=== PATIENT | female | born 1990 | race Two or more races ===

== ENCOUNTER 2022-11-28 13:37 | Emergency (ER) | payer OTHER ==
[~2022-11-28] VITALS: Ht 162.6 cm; Wt 68.9 kg
== END 2022-11-28 19:32 | disposition home or self-care (01) ==
LOC: ER 13:37
DX: O20.9 Hemorrhage in early pregnancy, unspecified (principal); Z3A.01 Less than 8 weeks gestation of pregnancy; K52.89 Other specified noninfective gastroenteritis and colitis; Z20.822 Contact with and (suspected) exposure to COVID-19

== ENCOUNTER 2022-12-03 15:39 | Inpatient (IN) | payer OTHER ==
[~2022-12-03] VITALS: Ht 162.6 cm; Wt 68.9 kg
== END 2022-12-04 10:05 | disposition home or self-care (01) | DRG 806 ==
LOC: ER 15:39 → O/R 22:56
PROVIDERS: ADMIT Obstetrics & Gynecology; ATTEND Obstetrics & Gynecology
PROC: 10D07Z8 Extraction of Products of Conception, Other, Via Natural or Artificial Opening (ICD-10-PCS; principal; 2022-12-03 22:00)
DX: O02.0 Blighted ovum and nonhydatidiform mole (principal); O08.1 Delayed or excessive hemorrhage following ectopic and molar pregnancy; Z37.1 Single stillbirth; Z20.822 Contact with and (suspected) exposure to COVID-19

== ENCOUNTER 2023-06-09 14:04 | Emergency (ER) | payer OTHER ==
[~2023-06-09] VITALS: Ht 160 cm; Wt 67.6 kg
[2023-06-09] MEDS ORDERED: PRENATA CHEWAB1 EACH PO (14:16)
[2023-06-09] MEDS ORDERED: FAMOTIDINE/PF 20 MG/2 ML VIAL IV ONE (16:00)
[2023-06-09 16:10] LABS: HEMATOCRIT 34.8 % (36.0-45.00); HEMOGLOBIN 12.2 g/dL (12.0-15.00); MEAN CELL VOLUME 92.6 fL (80.00-100.00); MEAN CORPUSCULAR HEMOGLOBIN 32.4 pg (27.00-32.0); PLATELET COUNT 333 K/uL (150-450); RED BLOOD COUNT 3.75 M/uL (4.00-6.00); RED CELL DISTRIBUTION WIDTH 14.1 % (11.5-14.5)
[2023-06-09 16:24] LABS: PH,URINE 6.5 (5.0-8.0); URINE APPEARANCE Clear; URINE BILIRRUBIN Negative (NEGATIVE); URINE BLOOD Negative; URINE COLOR Yellow; URINE GLUCOSE Negative (NEGATIVE); URINE LEUKOCYTE Small; URINE NITRATE Negative; URINE PROTEIN Negative (NEGATIVE); URINE UROBILINOGEN 0.2 E.U./dl
[2023-06-09 16:27] LABS: URINE EPITHELIAL CELLS 19.7 uL (0.0-38.8); URINE RBC 2.7 uL (0.0-20.8); URINE WBC 50.8 uL (0.0-23.2)
[2023-06-09 16:47] LABS: CREATININE SERUM 0.48 mg/dL (0.55-1.02); GFR 148.94; POTASSIUM 3.94 mEq/L (3.5-5.1)
[2023-06-09] MEDS ORDERED: PEPCID AC20 MG PO ×2 (18:52)
[2023-06-09] MEDS ORDERED: MACROBID 100 M100 MG PO (18:55)
== END 2023-06-09 19:05 | disposition home or self-care (01) ==
LOC: ER 14:04
PROVIDERS: Nurse Practitioner Family
DX: O34.81 Maternal care for other abnormalities of pelvic organs, first trimester (principal); N83.292 Other ovarian cyst, left side; Z3A.11 11 weeks gestation of pregnancy; R10.2 Pelvic and perineal pain; Z20.822 Contact with and (suspected) exposure to COVID-19

== ENCOUNTER 2023-06-26 11:07 | Outpatient (CLI) | payer OTHER ==
[~2023-06-26 11:07] MED LIST: MACROBID 100 M100 MG PO; PEPCID AC20 MG PO; PRENATA CHEWAB1 EACH PO
== END 2023-06-26 11:08 | disposition home or self-care (01) ==
LOC: PRENATAL 11:07
PROVIDERS: ATTEND Obstetrics & Gynecology Maternal & Fetal Medicine
DX: O35.9XX0 Maternal care for (suspected) fetal abnormality and damage, unspecified, not applicable or unspecified (principal); O35.3XX0 Maternal care for (suspected) damage to fetus from viral disease in mother, not applicable or unspecified; O44.00 Complete placenta previa NOS or without hemorrhage, unspecified trimester; Z3A.14 14 weeks gestation of pregnancy

== ENCOUNTER 2023-12-14 05:35 | Inpatient (IN) | payer OTHER ==
[~2023-12-14] VITALS: Ht 162.6 cm; Wt 79.4 kg
[2023-12-14 09:04] LABS: HEMATOCRIT 33.3 % (36.0-45.00); HEMOGLOBIN 11.2 g/dL (12.0-15.00); MEAN CELL VOLUME 87.7 fL (80.00-100.00); MEAN CORPUSCULAR HEMOGLOBIN 29.5 pg (27.00-32.0); MEAN CORPUSCULAR HGB CONC 33.7 g/dl (32.0-36.0); PLATELET COUNT 306 K/uL (150-450); RED BLOOD COUNT 3.79 M/uL (4.00-6.00); RED CELL DISTRIBUTION WIDTH 15.2 % (11.5-14.5)
[2023-12-14 09:11] LABS: PH,URINE 6.5 (5.0-8.0); URINE APPEARANCE Clear; URINE BILIRRUBIN Negative (NEGATIVE); URINE BLOOD Negative; URINE COLOR Yellow; URINE GLUCOSE Negative (NEGATIVE); URINE KETONE Negative (NEGATIVE); URINE LEUKOCYTE Negative; URINE NITRATE Negative; URINE PROTEIN Negative (NEGATIVE); URINE UROBILINOGEN 0.2 E.U./dl
[2023-12-14 09:13] LABS: URINE BACTERIA 224.2 uL (0.0-1933); URINE EPITHELIAL CELLS 26.7 uL (0.0-38.8); URINE RBC 2.1 uL (0.0-20.8); URINE WBC 10.6 uL (0.0-23.2)
[2023-12-14] MEDS ORDERED: MISOPROSTOL 25 MCG/4 ML GEL.W.APPL ONE (09:17)
[2023-12-14] MEDS ORDERED: MISOPROSTOL 25 MCG/4 ML GEL.W.APPL VAG STA (09:28)
[2023-12-14 09:41] LABS: INR < 0.93; PARTIAL THROMBOPLASTIN TIME 26.1 SECONDS (22.0-34.0); PROTHROMBIN TIME 9.8 SECONDS (9.0-11.5)
[2023-12-14 10:06] LABS: ALBUMIN 3.1 gm/dL (3.4-5.0); BILIRUBIN TOTAL 0.36 mg/dL (0.3-1.2); CREATININE SERUM 0.54 mg/dL (0.55-1.02); GFR 130.02; GLOBULINA 3.5 G/DL (2.4-3.5); POTASSIUM 3.92 mEq/L (3.5-5.1); TOTAL PROTEIN 6.6 gm/dL (6.4-8.2)
[2023-12-14 10:36] LABS: URINE CAST 0.15 uL (0.0-1.40)
[2023-12-14] MEDS ORDERED: OXYTOCIN 20 UNITS/500ML RL PIGGYBAG IV ONE (13:43)
[2023-12-14] MEDS ORDERED: OXYTOCIN 500 ML IV SCH (14:15)
[2023-12-14] MEDS ORDERED: MORPHINE SULFATE 4 MG/ML VIAL IV STA (16:02)
[2023-12-14] MEDS ORDERED: ERYTHROMYCIN BASE 1 GM TUBE OP ONE (16:36)
[2023-12-14] MEDS ORDERED: CHLORHEXIDINE GLUCONATE 120 ML BOTTLE TOP ONE (16:37)
[2023-12-14] MEDS ORDERED: OXYTOCIN 20 UNITS/1000ML RL PIGGYBAG IV ONE (16:37)
[2023-12-14] MEDS ORDERED: LIDOCAINE HCL 1% 10ML VIAL ONE (16:37)
[2023-12-14] MEDS ORDERED: OXYTOCIN 10 UNITS/ML VIAL ONE (16:37)
[2023-12-14] MEDS ORDERED: PROMETHAZINE HCL 25 MG/ML AMPUL ONE (16:44)
[2023-12-14] MEDS ORDERED: PROMETHAZINE HCL 25 MG/ML AMPUL IV STA (16:53)
[2023-12-14] MEDS ORDERED: PROMETHAZINE HCL 25 MG/ML AMPUL IM STA (16:53)
[2023-12-14] MEDS ORDERED: IBUprofen 400 MG TABLET PO PRN (18:00)
[2023-12-14] MEDS ORDERED: ERYTHROMYCIN BASE 1 GM TUBE OP SCH (19:15)
[2023-12-14] MEDS ORDERED: CHLORHEXIDINE GLUCONATE 120 ML BOTTLE TP SCH (19:15)
[2023-12-14] MEDS ORDERED: OXYTOCIN 10 UNITS/ML VIAL IM STA (19:15)
[2023-12-14] MEDS ORDERED: OXYTOCIN 1,000 ML IV SCH (19:15)
[2023-12-14 23:18] LABS: HEMATOCRIT 32.6 % (36.0-45.00); HEMOGLOBIN 10.9 g/dL (12.0-15.00); MEAN CELL VOLUME 87.9 fL (80.00-100.00); MEAN CORPUSCULAR HEMOGLOBIN 29.5 pg (27.00-32.0); MEAN CORPUSCULAR HGB CONC 33.6 g/dl (32.0-36.0); PLATELET COUNT 336 K/uL (150-450)
== END 2023-12-16 15:10 | disposition home or self-care (01) | DRG 807 ==
LOC: LDR 05:35 → OB/GYN 18:59
PROVIDERS: ADMIT Obstetrics & Gynecology; ATTEND Obstetrics & Gynecology
PROC: 10E0XZZ Delivery of Products of Conception, External Approach (ICD-10-PCS; principal; 2023-12-14)
PROC: 3E033VJ Introduction of Other Hormone into Peripheral Vein, Percutaneous Approach (ICD-10-PCS; 2023-12-14)
PROC: 3E0P7VZ Introduction of Hormone into Female Reproductive, Via Natural or Artificial Opening (ICD-10-PCS; 2023-12-14)
PROC: 4A1HXCZ Monitoring of Products of Conception, Cardiac Rate, External Approach (ICD-10-PCS; 2023-12-14)
DX: O69.81X0 Labor and delivery complicated by cord around neck, without compression, not applicable or unspecified (principal); Z37.0 Single live birth; Z3A.39 39 weeks gestation of pregnancy; Z20.822 Contact with and (suspected) exposure to COVID-19

== ENCOUNTER 2024-02-01 09:45 | Outpatient (CLI) | payer OTHER ==
[2024-02-01] MEDS ORDERED: PRENATE ELITE1 EAC2 (13:18)
== END 2024-02-01 09:50 | disposition home or self-care (01) ==
LOC: LAB 09:45
PROVIDERS: ATTEND Obstetrics & Gynecology
DX: O20.0 Threatened abortion (principal)

== ENCOUNTER 2024-02-01 13:16 | Emergency (ER) | payer OTHER ==
[~2024-02-01] VITALS: Ht 160 cm; Wt 64.9 kg
[2024-02-01] MEDS ORDERED: PRENATE ELITE1 EAC2 (13:18)
[2024-02-01] MEDS ORDERED: ACETAMINOPHEN 500 MG GEL..CAP PO ONE (14:30)
[2024-02-01 15:44] LABS: HEMATOCRIT 37.4 % (36.0-45.00); HEMOGLOBIN 12.5 g/dL (12.0-15.00); MEAN CELL VOLUME 88.6 fL (80.00-100.00); MEAN CORPUSCULAR HEMOGLOBIN 29.7 pg (27.00-32.0); MEAN CORPUSCULAR HGB CONC 33.5 g/dl (32.0-36.0); PLATELET COUNT 300 K/uL (150-450); RED BLOOD COUNT 4.22 M/uL (4.00-6.00); RED CELL DISTRIBUTION WIDTH 16.6 % (11.5-14.5)
== END 2024-02-01 17:18 | disposition home or self-care (01) ==
LOC: ER 13:18
PROVIDERS: Nurse Practitioner Family
DX: O72.2 Delayed and secondary postpartum hemorrhage (principal)

== ENCOUNTER 2024-02-08 05:39 | Emergency (ER) | payer OTHER ==
[~2024-02-08] VITALS: Ht 160 cm; Wt 64.9 kg
[~2024-02-08 05:39] MED LIST changes: +PRENATE ELITE1 EAC2
[2024-02-08] MEDS ORDERED: RINGERS SOLUTION,LACTATED 1,000 ML IV ONE (06:15)
[2024-02-08] MEDS ORDERED: ACETAMINOPHEN 500 MG GEL..CAP PO ONE (06:15)
[2024-02-08 06:50] LABS: HEMATOCRIT 35.2 % (36.0-45.00); HEMOGLOBIN 12.1 g/dL (12.0-15.00); MEAN CELL VOLUME 86.9 fL (80.00-100.00); MEAN CORPUSCULAR HGB CONC 34.5 g/dl (32.0-36.0); PLATELET COUNT 292 K/uL (150-450); RED BLOOD COUNT 4.05 M/uL (4.00-6.00); RED CELL DISTRIBUTION WIDTH 16.3 % (11.5-14.5)
[2024-02-08 07:09] LABS: PARTIAL THROMBOPLASTIN TIME 27.9 SECONDS (22.0-34.0); PROTHROMBIN TIME 10.9 SECONDS (9.0-11.5)
[2024-02-08 08:02] LABS: ALBUMIN 3.7 gm/dL (3.4-5.0); ALKALINE PHOSPHATASE 66 U/L (50-136); ALT/SGPT 48 U/L (12-78); ANION GAP 9 (10.0-20.0); AST/SGOT 23 U/L (15-37); BILIRUBIN TOTAL 0.24 mg/dL (0.3-1.2); BLOOD UREA NITROGEN 15 mg/dL (7-18); BUN CREA RATIO 22 (7.0-25.0); CALCIUM 8.8 mg/dL (8.5-10.1); CARBON DIOXIDE 27 mEq/L (21-32); CHLORIDE 112 mmol/L (98-107); CREATININE SERUM 0.69 mg/dL (0.55-1.02); GFR 97.39; GLOBULINA 3.6 G/DL (2.4-3.5); GLUCOSE FASTING 85 mg/dL (65-100); OSMOLALITY SERUM 287 MOSM/KG (275-295); POTASSIUM 3.99 mEq/L (3.5-5.1); SODIUM 144 mmol/L (136-145); TOTAL PROTEIN 7.3 gm/dL (6.4-8.2)
[2024-02-08 08:03] LABS: HCG QUANTITATIVE < 1 mUI/mL (1-3)
== END 2024-02-08 15:02 | disposition home or self-care (01) ==
LOC: ER 05:41
PROVIDERS: General Practice
DX: O20.9 Hemorrhage in early pregnancy, unspecified (principal); Z3A.00 Weeks of gestation of pregnancy not specified

== ENCOUNTER 2024-02-22 07:19 | Day surgery (SDC) | payer OTHER ==
[2024-01-29 10:15] LABS: PH,URINE 5.5 (5.0-8.0); URINE APPEARANCE Clear; URINE BILIRRUBIN Negative (NEGATIVE); URINE BLOOD Moderate; URINE COLOR Yellow; URINE GLUCOSE Negative (NEGATIVE); URINE KETONE Negative (NEGATIVE); URINE LEUKOCYTE Moderate; URINE NITRATE Negative; URINE PROTEIN Negative (NEGATIVE); URINE UROBILINOGEN 0.2 E.U./dl
[2024-01-29 10:19] LABS: HEMATOCRIT 38.6 % (36.0-45.00); MEAN CELL VOLUME 87.8 fL (80.00-100.00); MEAN CORPUSCULAR HEMOGLOBIN 29.6 pg (27.00-32.0); MEAN CORPUSCULAR HGB CONC 33.7 g/dl (32.0-36.0); PLATELET COUNT 289 K/uL (150-450); RED BLOOD COUNT 4.39 M/uL (4.00-6.00); RED CELL DISTRIBUTION WIDTH 16.1 % (11.5-14.5)
[2024-01-29 10:20] LABS: URINE BACTERIA 1117.4 uL (0.0-1933); URINE EPITHELIAL CELLS 24.2 uL (0.0-38.8); URINE RBC 8.5 uL (0.0-20.8); URINE WBC 50.8 uL (0.0-23.2)
[2024-01-29 10:32] LABS: URINE CAST 0.15 uL (0.0-1.40)
[2024-01-29 10:50] LABS: INR 1.03; PARTIAL THROMBOPLASTIN TIME 28.7 SECONDS (22.0-34.0); PROTHROMBIN TIME 11.2 SECONDS (9.0-11.5)
[2024-01-29 11:03] LABS: BILIRUBIN TOTAL 0.32 mg/dL (0.3-1.2); CALCIUM 9.3 mg/dL (8.5-10.1); CREATININE SERUM 0.71 mg/dL (0.55-1.02); GFR 94.23; GLOBULINA 3.3 G/DL (2.4-3.5); POTASSIUM 4.32 mEq/L (3.5-5.1); TOTAL PROTEIN 7.3 gm/dL (6.4-8.2)
[2024-02-22] MEDS ORDERED: POVIDONE-IODINE 118 ML BOTT TOP ONE (19:15)
[2024-02-22] MEDS ORDERED: CEFAZOLIN SODIUM 1,000 MG VIAL IV ONE (19:15)
[2024-02-22] MEDS ORDERED: MORPHINE SULFATE 4 MG/ML VIAL IV ONE (21:00)
== END 2024-02-22 21:40 | disposition home or self-care (01) ==
LOC: CIR.AMB 07:19
PROVIDERS: ATTEND Obstetrics & Gynecology
DX: N80.8 Other endometriosis (principal); Z30.2 Encounter for sterilization; N73.6 Female pelvic peritoneal adhesions (postinfective); R10.2 Pelvic and perineal pain

== ENCOUNTER 2025-02-21 14:32 | Inpatient (IN) | payer OTHER ==
[~2025-02-21] VITALS: Ht 160 cm; Wt 0.5 kg
--- NOTE | 2025-02-21 14:39 | NUR ---
SE RECIBE PTE ALERTA Y ORIENTADA X3. REFIERE QUE LACTA A TOUSSAINT ARTURO Y PRESENTA DOLOR E HINCHAZON EN SENO TAMMY DESDE HACE 3 SEMANAS. SE MIDE SV Y SE UBICA
[2025-02-21] MEDS ORDERED: CEFTRIAXONE SODIUM 2,000 MG VIAL IV ONE (14:45)
[2025-02-21] MEDS ORDERED: 0.9 % SODIUM CHLORIDE 1,000 ML IV SCH (14:45)
[2025-02-21] MEDS ORDERED: FAMOTIDINE/PF 20 MG/2 ML VIAL IV ONE (14:45)
[2025-02-21] MEDS ORDERED: CEFTRIAXONE SODIUM 2,000 MG VIAL ONE (15:47)
[2025-02-21] MEDS ORDERED: FAMOTIDINE/PF 20 MG/2 ML VIAL ONE (15:47)
[2025-02-21 16:13] LABS: BASO % 0.5 % (0.1-1.2); EOS # 0.11 (0.04-0.54); EOS % 0.9 % (0.7-7.0); LYMPH # 2.74 (1.18-3.74); LYMPH % 22.7 % (19.3-53.1); MEAN PLATELET VOLUME 9.30 fl (9.4-12.4); MONO # 0.72 (0.24-0.82); MONO % 6.0 % (4.7-12.5); NEUT # 8.41 (1.56-6.13); NEUT % 69.7 % (34.0-71.1); RED CELL DISTRIBUTION WIDTH 13.4 % (11.6-14.4)
--- NOTE | 2025-02-21 16:13 | NUR ---
SE ORIENTA A PACIENTE SOBRE TRATAMIENTO MEDICO, REFIERE ENTENDER. SE REALIZAN MUESTRAS DE LABORATORIO BAJO MEDIDAS ASEPTICAS. SE ADMINISTRAN MEDICAMENTOS GADIEL ORDEN MEDICA. SONOGRAMA REALIZADO. PENDIENTE RE-EVALUACION MEDICA.
[2025-02-21 16:15] LABS: ERYTHROCYTE SEDIMENTATION RATE 14 mm/hr (0-20)
[2025-02-21 16:32] LABS: INR 1.0
[2025-02-21 16:37] LABS: BUN CREA RATIO 13 (7.0-25.0); CREATININE SERUM 1.24 mg/dL (0.55-1.02); GFR 49.22; GLUCOSE FASTING 98 mg/dL (65-100); OSMOLALITY SERUM 282 MOSM/KG (275-295)
[2025-02-21] MEDS ORDERED: ACETAMINOPHEN 325 MG TABLET PO PRN (20:30)
[2025-02-21] MEDS ORDERED: ONDANSETRON HCL 4 MG in 0.9 % SODIUM CHLORIDE 50 ML IV PRN (20:30)
[2025-02-21 22:00] VITALS: BP 109/76
[2025-02-21 22:47] VITALS: BP 103/76
[2025-02-22] MEDS ORDERED: CLINDAMYCIN PHOSPHATE 600 MG in 0.9 % SODIUM CHLORIDE 50 ML IV SCH (01:00)
[2025-02-22 01:16] VITALS: BP 92/68; O2SAT 97
[2025-02-22 08:00] VITALS: BP 97/64; O2SAT 95
[2025-02-22] MEDS ORDERED: FAMOTIDINE/PF 20 MG/2 ML VIAL IV SCH (09:00)
[2025-02-22] MEDS ORDERED: ACETAMINOPHEN 500 MG GEL..CAP PO PRN (12:45)
[2025-02-22 18:38] VITALS: BP 82/64
[2025-02-23 02:29] VITALS: BP 95/56; O2SAT 97
[2025-02-23] MEDS ORDERED: CEFTRIAXONE SODIUM 2,000 MG VIAL IV SCH (09:00)
[2025-02-23 09:06] VITALS: BP 88/54; O2SAT 96
[2025-02-23 11:38] LABS: BASO % 0.4 % (0.1-1.2); EOS # 0.15 (0.04-0.54); EOS % 1.9 % (0.7-7.0); LYMPH # 2.39 (1.18-3.74); LYMPH % 31.0 % (19.3-53.1); MEAN PLATELET VOLUME 9.50 fl (9.4-12.4); MONO # 0.61 (0.24-0.82); MONO % 7.9 % (4.7-12.5); NEUT # 4.51 (1.56-6.13); NEUT % 58.4 % (34.0-71.1); RED CELL DISTRIBUTION WIDTH 13.2 % (11.6-14.4)
[2025-02-23 11:42] LABS: ERYTHROCYTE SEDIMENTATION RATE 19 mm/hr (0-20)
[2025-02-23 12:18] LABS: ALT/SGPT 21.0 U/L (12-78); AST/SGOT 9.0 U/L (15-37); BILIRUBIN TOTAL 0.32 mg/dL (0.3-1.2); BUN CREA RATIO 26.0 (7.0-25.0); CREATININE SERUM 0.5 mg/dL (0.55-1.02); GFR 140.4; GLOBULINA 3.1 G/DL (2.4-3.5); GLUCOSE FASTING 68.0 mg/dL (65-100); OSMOLALITY SERUM 278.0 MOSM/KG (275-295)
[2025-02-23 13:19] VITALS: BP 100/71
[2025-02-23] MEDS ORDERED: CLOTRIMAZOLE/BETAMETHASONE DIP 15 GM TUBE TOP SCH (17:00)
[2025-02-23 19:32] VITALS: BP 100/68; O2SAT 96
[2025-02-24 00:55] VITALS: BP 93/63; O2SAT 96
[2025-02-24 09:17] VITALS: BP 105/73; O2SAT 99
[2025-02-24 18:26] VITALS: BP 106/72; O2SAT 99
[2025-02-25 01:53] VITALS: BP 95/61; O2SAT 98
[2025-02-25 09:13] VITALS: BP 90/60; O2SAT 96
[2025-02-25 20:32] VITALS: BP 98/76
[2025-02-26 02:36] VITALS: BP 93/62; O2SAT 98
[2025-02-26 08:41] VITALS: BP 92/65; O2SAT 99
[2025-02-26 16:00] VITALS: BP 109/72; O2SAT 100
[2025-02-27 03:26] VITALS: BP 100/66; O2SAT 98
[2025-02-27 08:20] VITALS: BP 101/68; O2SAT 97
[2025-02-27 17:00] VITALS: BP 96/60; O2SAT 97
[2025-02-28 03:12] VITALS: BP 93/63; O2SAT 100
[2025-02-28 09:40] VITALS: BP 107/70; O2SAT 96
[2025-02-28 17:44] VITALS: BP 106/65; O2SAT 97
[2025-03-01 01:19] VITALS: BP 91/60; O2SAT 96
[2025-03-01 08:43] VITALS: BP 102/68; O2SAT 97
== END 2025-03-01 17:50 | disposition home or self-care (01) | DRG 601 ==
LOC: ER 14:32 → MEDI 21:11
PROVIDERS: General Practice; Student in an Organized Health Care Education/Training Program; ADMIT Internal Medicine; ATTEND Internal Medicine
DX: N61.1 Abscess of the breast and nipple (principal); N63.0 Unspecified lump in unspecified breast; D72.829 Elevated white blood cell count, unspecified